=== PATIENT | female | born 1960 | race Hispanic/Latino ===

== ENCOUNTER 2016-11-30 09:49 | Day surgery (SDC) | payer MEDICARE, BC ==
[2016-11-30 10:17] VITALS: RESP 20
[2016-11-30 10:25] VITALS: BMI 35.6
[2016-11-30] MEDS ORDERED: MethylPREDNISolone Depo 40 mg/ml Inj ONE ×2 (10:28→11:31)
[2016-11-30] MEDS ORDERED: Bupivacaine HCl 0.25% PF (10 ml) Inj ONE (10:29)
[2016-11-30] MEDS ORDERED: Iohexol 300 10 ML ONE (10:29)
[2016-11-30] MEDS ORDERED: Bupivacaine HCl 0.5% PF (10 ml) Inj ONE (10:29)
[2016-11-30] MEDS ORDERED: Lidocaine 1% Inj (20ml) ONE (10:29)
[2016-11-30] MEDS ORDERED: Midazolam 2 MG/2 ML VIAL ONE (10:32)
[2016-11-30] MEDS ORDERED: Lidocaine 2% MPF (5 ml) Inj ONE (10:32)
[2016-11-30] MEDS ORDERED: Propofol 10 mg/ml Inj (20 ML) ONE (10:32)
[2016-11-30] MEDS ORDERED: Lactated Ringer's 1,000 ML IV ONE (10:50)
[2016-11-30] MEDS ORDERED: Bupivacaine HCl 0.5% PF (10 ml) Inj IJ ONE (10:55)
[2016-11-30] MEDS ORDERED: methylPREDNISolone Depo 80 mg/ml Inj IM ONE (10:55)
[2016-11-30] MEDS ORDERED: Iohexol 300 10 ML IJ ONE ×2 (10:55)
[2016-11-30] MEDS ORDERED: Lidocaine 1% Inj (20ml) IJ ONE (10:55)
[2016-11-30] MEDS ORDERED: Bupivacaine HCl 0.25% PF (10 ml) Inj IJ ONE (10:55)
[2016-11-30 12:34] VITALS: TEMP 97.8
[2016-11-30 13:06] VITALS: BP 132/78; PULSE 62; O2SAT 99
--- NOTE | 2016-11-30 14:43 | RAD ---
PROCEDURE: Intraoperative Fluoroscopy. HISTORY: PAIN MANAGEMENT FINDINGS: Fluoroscopic assistance was provided. 74 seconds of fluoroscopy time utilized during this procedure. Radiation dose = 23.47 mGy.
--- NOTE | 2016-12-01 10:30 | OP ---
PROCEDURE DATE: 11/30/2016 PREOPERATIVE DIAGNOSES: Lumbar spondylosis, sacroiliitis and pyriformis syndrome. POSTOPERATIVE DIAGNOSES: Lumbar spondylosis, sacroiliitis and pyriformis syndrome. PROCEDURE: Left L4-L5 transforaminal epidural steroid injection, bilateral sacroiliac joint injection and left pyriformis muscle injection. SURGEON: Dr. Abrams. TYPE OF ANESTHESIA: Monitored anesthesia care. ANESTHESIOLOGIST: Dr. Valenzuela. COMPLICATIONS: None. SPECIMEN: None. DESCRIPTION OF PROCEDURE: After re-discussion of the procedure with the patient including its risks, benefits, alternatives, outcome data, possibility of no effects or increased pain, the patient consented to the procedure. She denied any recent infection, bleeding tendencies or being on anticoagulants. The decision was then made to proceed to the OR. The patient was placed on a fluoroscopy table in a prone position with 2 pillows underneath her abdomen. The back was prepped and draped in a usual sterile fashion and sterile technique was adhered to during the entire procedure. The L4 vertebrae levels were first identified in the anterior and posterior view. Angulation towards the left at approximately 25 degrees was used to maximize the visualization of the left L4 pedicle. The skin overlying the 6 o'clock position of the pedicles was infiltrated with 1% lidocaine using 25 gauge needle. Subsequently, a 22-gauge 3-1/2 inch spinal needle was incrementally advanced under fluoroscopic guidance until tip of the needle lay within the intervertebral foramen. After satisfactory positioning of needle which was confirmed under anterior and posterior view and lateral views, approximately 1 mL of Isovue contrast was injected showing no appropriate epidural spread without any signs of CSF or intervenous involvement. At this point, approximately 3 mL of 0.25% Marcaine and Depo Medrol mixture was injected. The needle was then removed. Then, the fluoroscopy was moved distally until both sacroiliac joints were visualized. The posterior opening of the joint was then delineated from anterior opening. The target was at the inferior pole of both sacroiliac joints. The skin overlying the both target areas was infiltrated with 1% lidocaine using a 25 gauge needle. Subsequently, a 22-gauge 3-1/2 inch spinal needle was then incrementally advanced under fluoroscopic guidance until tip of the needle walk into the joint capsule on both sides. After appropriate placement of both needles, approximately 1 mL of Isovue contrast was injected showing appropriate spread up the joint line. At this point,approximately 3 mL of 0.5% Marcaine and Depo-Medrol mixture was injected. The needle was then removed. Then, the fluoroscopy was moved further distally and towards the left until the screen showed both the left greater trochanter and sacrum. The midpoint between this two landmarks was then marked. A 25-gauge 1-1/2 inch needle was used to infiltrate the skin overlying this area. Then, a 22-gauge 3-1/2 needle was then inserted perpendicularly to the skin until the needle walk into the muscle belly. This was confirmed by injecting approximately 0.5 mL of Isovue contrast. Then, approximately 5 mL of 0.5% Marcaine and Depo-Medrol mixture was injected. At the end of the case, the patient's back was clean and dry and bandage was applied. The patient was then transferred to recovery area in good condition without any signs of [employer] [employer] toxicity or any neurological deficit. She will have a followup in our office in approximately 2 to 4 weeks. En-Dugals Abrams MD
== END 2016-11-30 13:10 | disposition home or self-care (01) ==
LOC: H.OPSURG 09:49
PROVIDERS: ATTEND Anesthesiology
DX: M53.88 Other specified dorsopathies, sacral and sacrococcygeal region (principal); E78.5 Hyperlipidemia, unspecified; I10 Essential (primary) hypertension; K21.9 Gastro-esophageal reflux disease without esophagitis; E66.9 Obesity, unspecified
CPT/HCPCS: 64483; J1030; J1040; J2250; J2704; J7120; Q9967